=== PATIENT | male | born 1960 | race Caucasian/White ===

== ENCOUNTER 2024-04-11 18:46 | Emergency (ER) | payer OTHER ==
[~2024-04-11] VITALS: Ht 165.1 cm; Wt 77.5 kg
[2024-04-11 18:54] VITALS: O2SAT 99
[2024-04-11] MEDS ORDERED: ALLOPURINOL (18:54)
[2024-04-11] MEDS ORDERED: BREO (18:54)
[2024-04-11] MEDS ORDERED: SPIRIVA (18:54)
[2024-04-11 19:41] VITALS: TEMP 36.83628
[2024-04-11 20:30] VITALS: BP 127/86; PULSE 89; RESP 17; O2SAT 100
== END 2024-04-11 20:51 ==
LOC: ER 18:46
DX: F10.129 Alcohol abuse with intoxication, unspecified (principal); J45.909 Unspecified asthma, uncomplicated; Z98.890 Other specified postprocedural states; Y90.9 Presence of alcohol in blood, level not specified
CPT/HCPCS: 93005; 99283